=== PATIENT | female | born 1955 | race African-American/Black ===

== ENCOUNTER 2018-05-09 01:49 | Inpatient (IN) | payer MEDICARE, OTHER ==
[~2018-05-09] VITALS: Ht 167.6 cm; Wt 75.7 kg
[~2018-05-09 01:49] MED LIST: ESCI10TA54 PO; LOSA25TA12 PO
[2018-05-09] MEDS ORDERED: ALBUTEROL (0.083%) 2.5MG/3ML NEB HHN STA (02:04)
[2018-05-09] MEDS ORDERED: METHYLPREDNISOLONE SOD SUCC 125 MG/2 ML VIAL IV STA (02:04)
[2018-05-09] MEDS ORDERED: IPRATROPIUM BROMIDE (0.02%) 0.5MG/2.5ML NEB HHN STA (02:04)
[2018-05-09] MEDS ORDERED: ASPIRIN 81MG TABLET PO ONE (02:15)
[2018-05-09 03:10] LABS: BASOPHILS % 0.6 % (0.0-2.0); EOSINOPHILS % 0.9 % (0.0-5.0); HEMATOCRIT. 38.7 % (36.0-48.0); LYMPHOCYTES % 29.7 % (20.0-50.0); MEAN CORPUSCULAR HEMOGLOBIN 27.1 pg (28.0-32.0); MEAN CORPUSCULAR VOLUME 87.4 fL (81.0-99.0); MONOCYTES % 7.8 % (2.0-8.0); PLATELET 261 x1000/uL (130-400); RED BLOOD CELL COUNT 4.43 mill/uL (4.2-5.4); RED CELL DISTRIBUTION WIDTH 17.3 % (11.6-14.6)
[2018-05-09 03:17] LABS: CHLORIDE 103 mEq/L (98-107)
[2018-05-09 03:21] LABS: PARTIAL THROMBOPLASTIN TIME 25.2 sec (23.4-31.0)
[2018-05-09] MEDS ORDERED: SODIUM CHLORIDE 0.9% 1000ML BAG (SEPSIS BOLUS) IV ONE (04:00)
[2018-05-09] MEDS ORDERED: POTASSIUM CHLORIDE 20MEQ TABLET SR PO ONE (04:00)
[2018-05-09] MEDS ORDERED: LEVOFLOXACIN 750MG PREMIX 150 ML IV ONE (04:00)
[2018-05-09] MEDS ORDERED: MEDICATION NOT ON FORMULARY EA (Losartan Potassium 25 MG) PO SCH (11:45)
[2018-05-09 11:50] VITALS: BP 134/67
[2018-05-09 12:01] LABS: BG BASE EXCESS -5.4 mmol/L (-2.0-2.0); BG CARBOXYHEMOGLOBIN 1.5 % (0.5-1.5); BG DEOXYHEMOGLOBIN 7.9 % (0.0-5.0); BG HCO3 ACT 20.7 mmol/L (22.0-26.0); BG METHEMOGLOBIN 0.3 % (0.0-1.5); BG OXYHEMOGLOBIN 90.3 % (94.0-97.0); BG PCO2 42.4 mmHg (35.0-45.0); BG PH 7.306 (7.350-7.450); BG PO2 64.3 mmHg (75.0-100.0); BG SAMPLE SITE RIGHT RADIAL; BG TOTAL HEMOGLOBIN 11.9 g/dL (12.0-18.0); BG VENT MODE ROOM AIR
[2018-05-09 12:54] VITALS: BP 134/67
[2018-05-09] MEDS: MULTIVITAMINS,THER W-MINERALS TABLET PO SCH (13:26)
[2018-05-09] MEDS: ENOXAPARIN 40MG/0.4ML SYR SUBCUT SCH (13:26)
[2018-05-09] MEDS: FOLIC ACID 1MG TABLET PO SCH (13:26)
[2018-05-09] MEDS: METHYLPREDNISOLONE SOD SUCC 40 MG/ML VIAL IV SCH ×2 (13:27→21:38)
[2018-05-09] MEDS: THIAMINE HCL 100MG TABLET PO SCH (13:27)
[2018-05-09] MEDS: LOSARTAN POTASSIUM 25 MG TABLET PO SCH (13:27)
[2018-05-09] MEDS: NICOTINE 21MG PATCH TD SCH (13:27)
[2018-05-09 13:42] LABS: HEMATOCRIT 36.3 % (36.0-48.0); HEMOGLOBIN 11.6 g/dL (12.0-16.0); MEAN CORPUSCULAR HEMOGLOBIN 27.6 pg (28.0-32.0); PLATELET 277 x1000/uL (130-400); RED BLOOD CELL COUNT 4.22 mill/uL (4.2-5.4); RED CELL DISTRIBUTION WIDTH 17.4 % (11.6-14.6)
[2018-05-09 13:56] LABS: CHLORIDE 108 mEq/L (98-107)
[2018-05-09 14:04] LABS: LDL CHOLESTEROL 110 mg/dL (5-100)
[2018-05-09 14:05] LABS: HDL CHOLESTEROL 59 mg/dL (40-59)
[2018-05-09] MEDS ORDERED: INFLUENZA VIRUS VACCINE(AFLURIA) 0.5ML SYR IM ONE (16:00)
[2018-05-09] MEDS ORDERED: PNEUMOCOCCAL 23-VAL P-SAC VAC 0.5 ML IM ONE (16:00)
[2018-05-09 16:36] VITALS: BP 162/83
[2018-05-09] MEDS ORDERED: LACTULOSE 20G/30ML UDC PO NR (17:45)
[2018-05-09] MEDS ORDERED: BISACODYL 10MG SUPP PR NR (18:00)
[2018-05-09] MEDS: MONTELUKAST SODIUM 10MG TABLET PO SCH (19:20)
[2018-05-09 20:00] VITALS: BP 150/62
[2018-05-09] MEDS: IPRATROPIUM/ALBUTEROL 0.5-3(2.5)MG/3ML NEB HHN SCH (20:40)
[2018-05-09] MEDS ORDERED: FAMOTIDINE 20MG/2ML VIAL IV SCH (21:00)
[2018-05-10] VITALS: BP 140/79
[2018-05-10] MEDS ORDERED: DIPHENHYDRAMINE 50MG CAPSULE PO PRN (00:15)
[2018-05-10] MEDS: FAMOTIDINE 20MG/2ML VIAL IV SCH ×2 (00:17→09:39)
[2018-05-10] MEDS: IPRATROPIUM/ALBUTEROL 0.5-3(2.5)MG/3ML NEB HHN SCH ×5 (00:36→16:35)
[2018-05-10 04:00] VITALS: BP 136/78
[2018-05-10] MEDS: METHYLPREDNISOLONE SOD SUCC 40 MG/ML VIAL IV SCH ×2 (04:54→12:55)
[2018-05-10] MEDS ORDERED: LEVOFLOXACIN 500MG PREMIX 100 ML IV SCH (05:00)
[2018-05-10 07:37] LABS: HEMATOCRIT 34.7 % (36.0-48.0); HEMOGLOBIN 10.9 g/dL (12.0-16.0); MEAN CORPUSCULAR HEMOGLOBIN 26.8 pg (28.0-32.0); MEAN CORPUSCULAR VOLUME 85.3 fL (81.0-99.0); PLATELET 221 x1000/uL (130-400); RED BLOOD CELL COUNT 4.07 mill/uL (4.2-5.4); RED CELL DISTRIBUTION WIDTH 17.1 % (11.6-14.6)
[2018-05-10 08:00] VITALS: BP 135/77
[2018-05-10] MEDS ORDERED: CITALOPRAM HYDROBROMIDE 20MG TABLET PO SCH (09:00)
[2018-05-10] MEDS ORDERED: LORATADINE 10MG TABLET PO SCH (09:00)
[2018-05-10] MEDS ORDERED: MEDICATION NOT ON FORMULARY EA (Escitalopram Oxalate 10 MG) PO SCH (09:00)
[2018-05-10] MEDS: MULTIVITAMINS,THER W-MINERALS TABLET PO SCH (09:39)
[2018-05-10] MEDS: ENOXAPARIN 40MG/0.4ML SYR SUBCUT SCH (09:39)
[2018-05-10] MEDS: THIAMINE HCL 100MG TABLET PO SCH (09:39)
[2018-05-10] MEDS: FOLIC ACID 1MG TABLET PO SCH (09:40)
[2018-05-10] MEDS: LOSARTAN POTASSIUM 25 MG TABLET PO SCH (09:40)
[2018-05-10] MEDS: NICOTINE 21MG PATCH TD SCH (09:40)
[2018-05-10] MEDS ORDERED: IOHEXOL-350 100 ML BOTTLE ONE (09:55)
[2018-05-10 10:49] LABS: CHLORIDE 110 mEq/L (98-107)
[2018-05-10 11:14] LABS: CLARITY URINE CLEAR (CLEAR); COLOR URINE YELLOW (YELLOW); KETONES URINE NEGATIVE (NEGATIVE); LEUKOCYTE ESTERASE URINE NEGATIVE (NEGATIVE); NITRITE URINE NEGATIVE (NEGATIVE); OCCULT BLOOD URINE NEGATIVE (NEGATIVE); PROTEIN URINE NEGATIVE (NEGATIVE); SPECIFIC GRAVITY URINE 1.022 (1.005-1.030); UROBILINOGEN URINE 0.2 E.U./dL (0.2-1.0)
[2018-05-10 11:44] LABS: *AMPHETAMINES SCREEN URINE NEGATIVE (NEGATIVE)
[2018-05-10 11:45] LABS: *BARBITURATES SCREEN URINE NEGATIVE (NEGATIVE); *BENZODIAZEPINES SCREEN URINE NEGATIVE (NEGATIVE); *COCAINE SCREEN URINE PRESUMTIVE POSITIVE (NEGATIVE); METHADONE URINE SCREEN NEGATIVE (NEGATIVE)
[2018-05-10 11:46] LABS: CANNABINOID URINE SCREEN NEGATIVE (NEGATIVE); OPIATES URINE SCREEN PRESUMTIVE POSITIVE (NEGATIVE); PHENCYCLIDINE URINE SCREEN NEGATIVE (NEGATIVE)
[2018-05-10 12:00] VITALS: BP 168/78
[2018-05-10] MEDS ORDERED: CLONIDINE 0.1MG TABLET PO NR (15:37)
[2018-05-10 16:00] VITALS: BP 159/85
[2018-05-10] MEDS: MONTELUKAST SODIUM 10MG TABLET PO SCH (16:20)
[2018-05-10 16:46] VITALS: BP 159/85
== END 2018-05-10 18:30 | disposition home or self-care (01) | DRG 871 ==
LOC: ER 01:49 → 7WST 04:06 → ENRESERV 06:50
PROVIDERS: ADMIT Internal Medicine; ATTEND Internal Medicine
PROC: 02HV33Z Insertion of Infusion Device into Superior Vena Cava, Percutaneous Approach (ICD-10-PCS; principal; 2018-05-10)
PROC: B5181ZA Fluoroscopy of Superior Vena Cava using Low Osmolar Contrast, Guidance (ICD-10-PCS; 2018-05-10)
PROC: B548ZZA Ultrasonography of Superior Vena Cava, Guidance (ICD-10-PCS; 2018-05-10)
DX: A41.9 Sepsis, unspecified organism (principal); J18.9 Pneumonia, unspecified organism; R65.21 Severe sepsis with septic shock; J44.0 Chronic obstructive pulmonary disease with (acute) lower respiratory infection; E87.2 Acidosis; N39.0 Urinary tract infection, site not specified; J44.1 Chronic obstructive pulmonary disease with (acute) exacerbation; F10.20 Alcohol dependence, uncomplicated; T38.0X5A Adverse effect of glucocorticoids and synthetic analogues, initial encounter; F17.210 Nicotine dependence, cigarettes, uncomplicated; R73.9 Hyperglycemia, unspecified; F32.9 Major depressive disorder, single episode, unspecified; I10 Essential (primary) hypertension; R09.02 Hypoxemia; Z79.899 Other long term (current) drug therapy; Y92.89 Other specified places as the place of occurrence of the external cause
CPT/HCPCS: 36415; 36569; 36600; 71045; 71275; 74018; 76937; 77001; 80048; 80061; 80305; 82140; 82375; 82805; 83036; 83605; 83880; 84443; 84484; 85027; 85379; 90686; 90732; 93005; 93970; 94640; 96365; 96366; 96375; 99291; C1725; J1650; J1956; J2920; J2930; J3490; J7030; J7050; J7611; J7620; Q0163; Q9967

== ENCOUNTER 2018-06-13 18:46 | Inpatient (IN) | payer MEDICARE, OTHER ==
[~2018-06-13] VITALS: Ht 167.6 cm; Wt 69.4 kg
[2018-06-13] MEDS ORDERED: DILTIAZEM HCL 5MG/ML 5ML VIAL IV ONE ×2 (19:30→20:30)
[2018-06-13] MEDS ORDERED: NITROGLYCERIN 0.4MG TABLET SL SL PRN (19:30)
[2018-06-13] MEDS ORDERED: ASPIRIN 81MG TABLET PO ONE (19:30)
[2018-06-13] MEDS ORDERED: ENOXAPARIN 100MG/ML SYR SUBCUT ONE ×2 (19:30→20:30)
[2018-06-13 20:22] LABS: BASOPHILS % 0.3 % (0.0-2.0); EOSINOPHILS % 0.1 % (0.0-5.0); HEMATOCRIT. 43.3 % (36.0-48.0); HEMOGLOBIN. 13.9 g/dL (12.0-16.0); MEAN CORPUSCULAR HEMOGLOBIN 27.9 pg (28.0-32.0); MEAN CORPUSCULAR VOLUME 86.9 fL (81.0-99.0); MEAN PLATELET VOLUME 8.6 fl (7.4-10.4); MONOCYTES % 3.8 % (2.0-8.0); NEUTROPHILS % 85.8 % (40.0-76.0); PLATELET 301 x1000/uL (130-400); RED BLOOD CELL COUNT 4.99 mill/uL (4.2-5.4); RED CELL DISTRIBUTION WIDTH 17.8 % (11.6-14.6)
[2018-06-13 20:25] LABS: CHLORIDE 108 mEq/L (98-107)
[2018-06-13] MEDS ORDERED: DILTIAZEM HCL 125 MG in DEXT 5% WATER 100 ML IV ONE ×2 (20:30→20:45)
[2018-06-13] MEDS ORDERED: DILTIAZEM HCL 120MG CAPSULE CD 24HR PO ONE (20:30)
[2018-06-13] MEDS ORDERED: DILTIAZEM HCL 60MG TABLET PO ONE (20:45)
[2018-06-13] MEDS ORDERED: SODIUM CHLORIDE 0.9% 1,000 ML IV ONE (21:00)
[2018-06-13] MEDS ORDERED: CALCIUM GLUCONATE 100MG/ML 10ML VIAL IV ONE (21:00)
[2018-06-13] MEDS ORDERED: SODIUM CHLORIDE 0.45% 1,000 ML IV SCH (22:43)
[2018-06-13] MEDS ORDERED: ACETAMINOPHEN 325MG TABLET PO PRN (22:45)
[2018-06-13] MEDS ORDERED: MAGNESIUM/ALUMINUM HYDROXIDE/SIMETHICONE 30ML UDC PO PRN (22:45)
[2018-06-13] MEDS ORDERED: IPRATROPIUM/ALBUTEROL 0.5-3(2.5)MG/3ML NEB INH PRN (22:45)
[2018-06-13] MEDS ORDERED: ONDANSETRON HCL 4MG/2ML INJ IV PRN (22:45)
[2018-06-13 23:13] LABS: PHOSPHORUS 3.1 mg/dL (2.5-4.9)
[2018-06-13] MEDS ORDERED: DIGOXIN 500MCG/2ML AMP IV SCH (23:53)
[2018-06-14] MEDS ORDERED: DIGOXIN 500MCG/2ML AMP IV SCH (02:00)
[2018-06-14] MEDS ORDERED: DIGOXIN 500MCG/2ML AMP IV NR ×2 (06:01→06:27)
[2018-06-14] MEDS ORDERED: METOPROLOL TARTRATE 50MG TABLET PO NR (06:01)
[2018-06-14 06:15] LABS: BASOPHILS % 0.6 % (0.0-2.0); EOSINOPHILS % 0.1 % (0.0-5.0); HEMATOCRIT. 41.3 % (36.0-48.0); HEMOGLOBIN. 13.2 g/dL (12.0-16.0); LYMPHOCYTES % 15.2 % (20.0-50.0); MEAN CORPUSCULAR HEMOGLOBIN 28.1 pg (28.0-32.0); MEAN CORPUSCULAR VOLUME 87.8 fL (81.0-99.0); MEAN PLATELET VOLUME 8.8 fl (7.4-10.4); MONOCYTES % 8.5 % (2.0-8.0); NEUTROPHILS % 75.6 % (40.0-76.0); PLATELET 255 x1000/uL (130-400); RED CELL DISTRIBUTION WIDTH 17.5 % (11.6-14.6)
[2018-06-14 06:22] LABS: CHLORIDE 111 mEq/L (98-107)
[2018-06-14 06:30] LABS: LDL CHOLESTEROL 119 mg/dL (5-100)
[2018-06-14 06:32] LABS: HDL CHOLESTEROL 71 mg/dL (40-59); T4 FREE 0.79 ng/dL (0.76-1.46)
[2018-06-14] MEDS ORDERED: ENOXAPARIN 40MG/0.4ML SYR SUBCUT SCH (09:00)
[2018-06-14] MEDS ORDERED: DEXTROSE 50% WATER 50ML SYRINGE IV PRN (11:30)
[2018-06-14] MEDS ORDERED: LEVOFLOXACIN 500MG PREMIX 100 ML IV SCH (11:30)
[2018-06-14] MEDS ORDERED: HYDROCODONE/ACETAMINOPHEN 5/325MG TABLET PO PRN (11:30)
[2018-06-14] MEDS ORDERED: DOCUSATE SODIUM 100MG CAPSULE PO PRN (11:30)
[2018-06-14] MEDS ORDERED: LIDOCAINE HCL 1% 20ML VIAL (Pyxis) INJ ONE (11:59)
[2018-06-14] MEDS ORDERED: IPRATROPIUM/ALBUTEROL 0.5-3(2.5)MG/3ML NEB HHN SCH (12:00)
[2018-06-14] MEDS: ASPIRIN 81MG EC TABLET PO SCH (12:06)
[2018-06-14 12:25] LABS: BG BASE EXCESS -5.1 mmol/L (-2.0-2.0); BG CARBOXYHEMOGLOBIN 1.1 % (0.5-1.5); BG DEOXYHEMOGLOBIN 6.5 % (0.0-5.0); BG FRACTION INSPIRED OXYGEN 21; BG HCO3 ACT 18.9 mmol/L (22.0-26.0); BG METHEMOGLOBIN 0.3 % (0.0-1.5); BG OXYGEN SATURATION 93.4 % (92.0-98.5); BG OXYHEMOGLOBIN 92.1 % (94.0-97.0); BG PCO2 32.4 mmHg (35.0-45.0); BG PH 7.384 (7.350-7.450); BG PO2 69.3 mmHg (75.0-100.0); BG SAMPLE SITE LEFT BRACHIAL; BG TOTAL HEMOGLOBIN 13.7 g/dL (12.0-18.0); BG VENT MODE ROOM AIR
[2018-06-14] MEDS ORDERED: AMIODARONE HCL 900 MG in DEXT 5% WATER 482 ML IV PRN ×2 (12:30→12:45)
[2018-06-14] MEDS ORDERED: AMIODARONE HCL 150 MG in DEXT 5% WATER 100 ML IV NR ×2 (12:39→12:45)
[2018-06-14] MEDS: BLOOD SUGAR DIAGNOSTIC STRIP TEST SCH (13:00)
[2018-06-14] MEDS: INSULIN LISPRO 100 UNITS/ML SUBCUT SCH (13:20)
[2018-06-14] MEDS ORDERED: DILTIAZEM HCL 125 MG in DEXT 5% WATER 100 ML IV SCH (14:00)
[2018-06-14] MEDS: DILTIAZEM HCL 125 MG in DEXT 5% WATER 100 ML IV SCH (14:29)
[2018-06-14 16:06] LABS: D-DIMER < 0.19 mg/L FEU (<0.50); INR 1.2; PROTHROMBIN TIME 11.6 sec (9.1-11.1)
[2018-06-14] MEDS: PANTOPRAZOLE 40MG DR TABLET PO SCH ×2 (18:50→21:00)
[2018-06-14] MEDS ORDERED: METOPROLOL TARTRATE 50MG TABLET PO SCH (21:00)
[2018-06-15] VITALS (41 sets, daily range): BP systolic 76–158; BP diastolic 19–95
[2018-06-15] MEDS ORDERED: LEVOFLOXACIN 500MG PREMIX 100 ML IV SCH (03:00)
[2018-06-15] MEDS: ENOXAPARIN 80MG/0.8ML SYR SUBCUT SCH ×2 (03:47→16:37)
[2018-06-15] MEDS: ATORVASTATIN CALCIUM 10MG TABLET PO SCH ×2 (03:47→20:37)
[2018-06-15 05:17] LABS: HEMATOCRIT 40.2 % (36.0-48.0); HEMOGLOBIN 12.7 g/dL (12.0-16.0); MEAN CORPUSCULAR HEMOGLOBIN 27.8 pg (28.0-32.0); MEAN CORPUSCULAR VOLUME 88.2 fL (81.0-99.0); PLATELET 239 x1000/uL (130-400); RED BLOOD CELL COUNT 4.56 mill/uL (4.2-5.4); RED CELL DISTRIBUTION WIDTH 17.5 % (11.6-14.6)
[2018-06-15 05:22] LABS: CHLORIDE 113 mEq/L (98-107)
[2018-06-15] MEDS: THIAMINE HCL 100MG TABLET PO SCH (05:47)
[2018-06-15] MEDS ORDERED: NICOTINE 14MG PATCH TD SCH (09:00)
[2018-06-15] MEDS ORDERED: DIGOXIN 500MCG/2ML AMP IV NR (10:30)
[2018-06-15] MEDS ORDERED: MAGNESIUM 1 G PREMIX 100 ML IV NR (10:30)
[2018-06-15] MEDS: PANTOPRAZOLE 40MG DR TABLET PO SCH ×2 (11:13→20:37)
[2018-06-15] MEDS: POTASSIUM CHLORIDE 20MEQ TABLET SR PO SCH (11:14)
[2018-06-15] MEDS: FUROSEMIDE 40MG/4ML VIAL IVP SCH (11:14)
[2018-06-15] MEDS: ASPIRIN 81MG EC TABLET PO SCH (11:14)
[2018-06-15] MEDS: INSULIN LISPRO 100 UNITS/ML SUBCUT SCH ×3 (12:00→20:37)
[2018-06-15] MEDS: BLOOD SUGAR DIAGNOSTIC STRIP TEST SCH ×3 (12:00→20:37)
[2018-06-15 13:13] LABS: CLARITY URINE CLEAR (CLEAR); COLOR URINE YELLOW (YELLOW); KETONES URINE NEGATIVE (NEGATIVE); LEUKOCYTE ESTERASE URINE NEGATIVE (NEGATIVE); NITRITE URINE NEGATIVE (NEGATIVE); OCCULT BLOOD URINE NEGATIVE (NEGATIVE); PROTEIN URINE NEGATIVE (NEGATIVE); SPECIFIC GRAVITY URINE 1.009 (1.005-1.030); UROBILINOGEN URINE 0.2 E.U./dL (0.2-1.0)
[2018-06-15 13:37] LABS: *AMPHETAMINES SCREEN URINE NEGATIVE (NEGATIVE); *BENZODIAZEPINES SCREEN URINE NEGATIVE (NEGATIVE); *COCAINE SCREEN URINE PRESUMTIVE POSITIVE (NEGATIVE)
[2018-06-15 13:38] LABS: CANNABINOID URINE SCREEN NEGATIVE (NEGATIVE); METHADONE URINE SCREEN NEGATIVE (NEGATIVE); OPIATES URINE SCREEN NEGATIVE (NEGATIVE); PHENCYCLIDINE URINE SCREEN NEGATIVE (NEGATIVE)
[2018-06-15 13:40] LABS: *BARBITURATES SCREEN URINE NEGATIVE (NEGATIVE)
[2018-06-15] MEDS: DILTIAZEM HCL 125 MG in DEXT 5% WATER 100 ML IV SCH (13:45)
[2018-06-15] MEDS: METHYLPREDNISOLONE SOD SUCC 40 MG/ML VIAL IV SCH ×2 (14:00→21:24)
[2018-06-15] MEDS ORDERED: DIPHENHYDRAMINE 25MG CAPSULE PO NR (16:30)
[2018-06-15] MEDS: NICOTINE 21MG PATCH TD SCH (20:37)
[2018-06-15] MEDS: IPRATROPIUM/ALBUTEROL 0.5-3(2.5)MG/3ML NEB HHN SCH (20:46)
[2018-06-15] MEDS: ALPRAZOLAM 0.25 MG TABLET PO PRN (22:53)
[2018-06-16] VITALS (43 sets, daily range): BP systolic 109–156; BP diastolic 59–106
[2018-06-16] MEDS: IPRATROPIUM/ALBUTEROL 0.5-3(2.5)MG/3ML NEB HHN SCH ×6 (01:08→20:33)
[2018-06-16] MEDS: LEVOFLOXACIN 250MG PREMIX 50 ML IV SCH (02:02)
[2018-06-16] MEDS: ENOXAPARIN 80MG/0.8ML SYR SUBCUT SCH (02:02)
[2018-06-16] MEDS ORDERED: LEVOFLOXACIN 250MG PREMIX 50 ML IV SCH (03:00)
[2018-06-16 05:33] LABS: MEAN CORPUSCULAR HEMOGLOBIN 27.9 pg (28.0-32.0); MEAN CORPUSCULAR VOLUME 87.8 fL (81.0-99.0); MEAN PLATELET VOLUME 9.5 fl (7.4-10.4); PLATELET 225 x1000/uL (130-400); RED BLOOD CELL COUNT 4.67 mill/uL (4.2-5.4); RED CELL DISTRIBUTION WIDTH 17.2 % (11.6-14.6)
[2018-06-16 05:38] LABS: CHLORIDE 111 mEq/L (98-107)
[2018-06-16] MEDS: METHYLPREDNISOLONE SOD SUCC 40 MG/ML VIAL IV SCH ×2 (06:03→13:04)
[2018-06-16] MEDS: PANTOPRAZOLE 40MG DR TABLET PO SCH ×2 (06:03→20:34)
[2018-06-16] MEDS: INSULIN LISPRO 100 UNITS/ML SUBCUT SCH ×4 (06:04→20:39)
[2018-06-16] MEDS: BLOOD SUGAR DIAGNOSTIC STRIP TEST SCH ×4 (06:04→20:34)
[2018-06-16] MEDS: DIPHENHYDRAMINE 50MG/ML VIAL IV PRN ×2 (08:33→16:25)
[2018-06-16] MEDS: THIAMINE HCL 100MG TABLET PO SCH (08:33)
[2018-06-16] MEDS: POTASSIUM CHLORIDE 20MEQ TABLET SR PO SCH (08:33)
[2018-06-16] MEDS: ASPIRIN 81MG EC TABLET PO SCH (08:33)
[2018-06-16] MEDS: ALPRAZOLAM 0.25 MG TABLET PO PRN (08:33)
[2018-06-16] MEDS: FUROSEMIDE 40MG/4ML VIAL IVP SCH (08:33)
[2018-06-16] MEDS: NICOTINE 21MG PATCH TD SCH (08:34)
[2018-06-16 08:46] LABS: PLATELET ESTIMATE NORMAL
[2018-06-16] MEDS: LOSARTAN POTASSIUM 25 MG TABLET PO SCH (12:05)
[2018-06-16 15:37] LABS: BG BASE EXCESS -2.7 mmol/L (-2.0-2.0); BG CARBOXYHEMOGLOBIN 0.6 % (0.5-1.5); BG FRACTION INSPIRED OXYGEN 21; BG HCO3 ACT 20.4 mmol/L (22.0-26.0); BG METHEMOGLOBIN 0.3 % (0.0-1.5); BG OXYGEN SATURATION 93.9 % (92.0-98.5); BG OXYHEMOGLOBIN 93.1 % (94.0-97.0); BG PCO2 30.7 mmHg (35.0-45.0); BG PH 7.441 (7.350-7.450); BG PO2 70.5 mmHg (75.0-100.0); BG SAMPLE SITE RIGHT RADIAL; BG VENT MODE ROOM AIR
[2018-06-16] MEDS ORDERED: ALPRAZOLAM 0.25 MG TABLET PO PRN (16:00)
[2018-06-16] MEDS ORDERED: LORAZEPAM 1MG TABLET PO PRN (17:15)
[2018-06-16] MEDS: DILTIAZEM HCL 60MG TABLET PO SCH (20:33)
[2018-06-16] MEDS: ATORVASTATIN CALCIUM 10MG TABLET PO SCH (20:33)
[2018-06-16] MEDS: AMLODIPINE 5MG TABLET PO SCH (20:34)
[2018-06-17] VITALS: BP 122/68
[2018-06-17] MEDS: IPRATROPIUM/ALBUTEROL 0.5-3(2.5)MG/3ML NEB HHN SCH ×5 (00:44→15:30)
[2018-06-17] MEDS ORDERED: METHYLPREDNISOLONE SOD SUCC 40 MG/ML VIAL IV SCH (03:00)
[2018-06-17] MEDS: LEVOFLOXACIN 250MG PREMIX 50 ML IV SCH (03:49)
[2018-06-17 04:00] VITALS: BP 116/62
[2018-06-17] MEDS: BLOOD SUGAR DIAGNOSTIC STRIP TEST SCH ×2 (06:36→11:45)
[2018-06-17] MEDS: PANTOPRAZOLE 40MG DR TABLET PO SCH (06:37)
[2018-06-17] MEDS: INSULIN LISPRO 100 UNITS/ML SUBCUT SCH ×2 (06:40→12:15)
[2018-06-17 08:14] VITALS: BP 120/77
[2018-06-17] MEDS: DILTIAZEM HCL 60MG TABLET PO SCH (08:15)
[2018-06-17] MEDS: LOSARTAN POTASSIUM 25 MG TABLET PO SCH (08:15)
[2018-06-17] MEDS: NICOTINE 21MG PATCH TD SCH (08:15)
[2018-06-17] MEDS: ASPIRIN 81MG EC TABLET PO SCH (08:15)
[2018-06-17] MEDS: POTASSIUM CHLORIDE 20MEQ TABLET SR PO SCH (08:15)
[2018-06-17] MEDS: THIAMINE HCL 100MG TABLET PO SCH (08:15)
[2018-06-17] MEDS: AMLODIPINE 5MG TABLET PO SCH (08:15)
[2018-06-17 12:00] VITALS: BP 112/55
[2018-06-17 14:32] VITALS: BP 112/55
[2018-06-17 15:27] LABS: HEMATOCRIT. 36.9 % (36.0-48.0); HEMOGLOBIN. 11.5 g/dL (12.0-16.0); MEAN CORPUSCULAR HEMOGLOBIN 27.8 pg (28.0-32.0); MEAN CORPUSCULAR VOLUME 88.9 fL (81.0-99.0); MEAN PLATELET VOLUME 9.4 fl (7.4-10.4); PLATELET 198 x1000/uL (130-400); RED BLOOD CELL COUNT 4.15 mill/uL (4.2-5.4); RED CELL DISTRIBUTION WIDTH 17.5 % (11.6-14.6)
[2018-06-17 15:48] LABS: PLATELET ESTIMATE NORMAL
== END 2018-06-17 16:11 | disposition home or self-care (01) | DRG 291 ==
LOC: ER 18:46 → MICUSO 21:13 → EDBEDREQSVC 21:16 → EDBEDREQ 21:16 → EDBEDREQTM 21:16 → EDBEDREQSVC 23:20 → EDBEDREQTM 23:20 → ENRESERV 06-15 08:49 → 5WST 06-16 21:41
PROVIDERS: ADMIT Internal Medicine; ATTEND Internal Medicine
PROC: 02HV33Z Insertion of Infusion Device into Superior Vena Cava, Percutaneous Approach (ICD-10-PCS; principal; 2018-06-14)
PROC: B548ZZA Ultrasonography of Superior Vena Cava, Guidance (ICD-10-PCS; 2018-06-14)
DX: I11.0 Hypertensive heart disease with heart failure (principal); J18.9 Pneumonia, unspecified organism; J44.1 Chronic obstructive pulmonary disease with (acute) exacerbation; D68.59 Other primary thrombophilia; J44.0 Chronic obstructive pulmonary disease with (acute) lower respiratory infection; I48.1 Persistent atrial fibrillation; I48.0 Paroxysmal atrial fibrillation; I50.33 Acute on chronic diastolic (congestive) heart failure; F17.210 Nicotine dependence, cigarettes, uncomplicated; I48.2 Chronic atrial fibrillation; E11.65 Type 2 diabetes mellitus with hyperglycemia; F14.90 Cocaine use, unspecified, uncomplicated; R94.4 Abnormal results of kidney function studies; F32.9 Major depressive disorder, single episode, unspecified; E78.5 Hyperlipidemia, unspecified; F41.9 Anxiety disorder, unspecified; F10.10 Alcohol abuse, uncomplicated; R00.1 Bradycardia, unspecified; T46.1X5A Adverse effect of calcium-channel blockers, initial encounter; Y92.238 Other place in hospital as the place of occurrence of the external cause; Z91.19 Patient's noncompliance with other medical treatment and regimen; Z79.899 Other long term (current) drug therapy; Z79.82 Long term (current) use of aspirin; Z71.51 Drug abuse counseling and surveillance of drug abuser; Z71.6 Tobacco abuse counseling; Z71.41 Alcohol abuse counseling and surveillance of alcoholic
CPT/HCPCS: 36415; 36569; 36600; 71045; 74018; 76937; 80048; 80061; 80305; 82375; 82805; 82962; 83036; 83605; 83735; 83880; 84100; 84439; 84443; 84484; 85027; 85379; 87804; 93005; 93306; 93970; 94640; 96361; 96365; 96375; 97116; 97162; 99284; 99291; A6261; C1725; J0282; J0610; J1160; J1200; J1650; J1815; J1940; J1956; J2920; J3475; J3490; J7030; J7050; J7060; J7620; Q0163

== ENCOUNTER 2018-10-17 15:55 | Inpatient (IN) | payer MEDICARE, OTHER ==
[~2018-10-17] VITALS: Ht 152.4 cm; Wt 73.7 kg
[~2018-10-17 15:55] MED LIST changes: -LOSA25TA12 PO; +LOSA25TA26 PO
[2018-10-17] MEDS ORDERED: METHYLPREDNISOLONE SOD SUCC 125 MG/2 ML VIAL IV STA (16:33)
[2018-10-17] MEDS ORDERED: IPRATROPIUM/ALBUTEROL 0.5-3(2.5)MG/3ML NEB HHN ONE (16:45)
[2018-10-17] MEDS ORDERED: DILTIAZEM HCL 30MG TABLET PO ONE (16:45)
[2018-10-17] MEDS ORDERED: MAGNESIUM 2 G PREMIX 50 ML IV ONE (16:45)
[2018-10-17 16:54] LABS: BG BASE EXCESS -2.4 mmol/L (-2.0-2.0); BG CARBOXYHEMOGLOBIN 1.1 % (0.5-1.5); BG DEOXYHEMOGLOBIN 6.3 % (0.0-5.0); BG FRACTION INSPIRED OXYGEN 21; BG METHEMOGLOBIN 0.3 % (0.0-1.5); BG OXYGEN SATURATION 93.6 % (92.0-98.5); BG OXYHEMOGLOBIN 92.3 % (94.0-97.0); BG PCO2 31.7 mmHg (35.0-45.0); BG PH 7.439 (7.350-7.450); BG PO2 70.2 mmHg (75.0-100.0); BG SAMPLE SITE RIGHT BRACHIAL; BG TOTAL HEMOGLOBIN 11.8 g/dL (12.0-18.0); BG VENT MODE ROOM AIR
[2018-10-17 17:09] LABS: BASOPHILS % 1.1 % (0.0-2.0); EOSINOPHILS % 0.4 % (0.0-5.0); HEMATOCRIT. 36.6 % (36.0-48.0); HEMOGLOBIN. 11.3 g/dL (12.0-16.0); LYMPHOCYTES % 17.3 % (20.0-50.0); MEAN CORPUSCULAR VOLUME 74.4 fL (81.0-99.0); MEAN PLATELET VOLUME 8.4 fl (7.4-10.4); MONOCYTES % 7.5 % (2.0-8.0); NEUTROPHILS % 73.7 % (40.0-76.0); PLATELET 373 x1000/uL (130-400); RED BLOOD CELL COUNT 4.92 mill/uL (4.2-5.4); RED CELL DISTRIBUTION WIDTH 21.4 % (11.6-14.6)
[2018-10-17 17:14] LABS: CHLORIDE 107 mEq/L (98-107)
[2018-10-17 17:17] LABS: INR 1.5; PARTIAL THROMBOPLASTIN TIME 62.2 sec (23.4-31.0); PROTHROMBIN TIME 14.9 sec (9.6-11.0)
[2018-10-17 17:18] LABS: ETHANOL BLOOD < 10 mg/dL
[2018-10-17] MEDS ORDERED: SODIUM CHLORIDE 0.9% 1,000 ML IV NR (18:10)
[2018-10-17] MEDS ORDERED: PIPERACILLIN/TAZ 3.375G PREMIX 50 ML IV ONE (18:15)
[2018-10-17] MEDS ORDERED: DILTIAZEM HCL 5MG/ML 5ML VIAL IV ONE (18:15)
[2018-10-17 23:00] VITALS: BP 128/79
[2018-10-17] MEDS ORDERED: ACETAMINOPHEN 325MG TABLET PO PRN (23:45)
[2018-10-17] MEDS ORDERED: ENOXAPARIN 40MG/0.4ML SYR SUBCUT SCH (23:45)
[2018-10-17] MEDS ORDERED: CARVEDILOL 6.25 MG TABLET PO SCH (23:45)
[2018-10-18] VITALS (12 sets, daily range): BP systolic 113–168; BP diastolic 41–92
[2018-10-18] MEDS ORDERED: LEVOFLOXACIN 500MG TABLET PO SCH ×2
[2018-10-18] MEDS: CARVEDILOL 6.25 MG TABLET PO SCH ×3 (00:40→21:27)
[2018-10-18] MEDS ORDERED: PNEUMOCOCCAL 23-VAL P-SAC VAC 0.5 ML IM ONE (02:00)
[2018-10-18] MEDS ORDERED: BARIUM SULFATE 450ML ORAL SUSP PO SCH (03:00)
[2018-10-18] MEDS ORDERED: DIATR MEGLU/DIATRIZOATE SOLN 30ML PO SCH ×2 (03:00→07:43)
[2018-10-18] MEDS: MORPHINE SULFATE 2 MG/ML CPJ (NOT FOR IM USE) IV PRN ×2 (03:24→06:34)
[2018-10-18 05:58] LABS: HEMATOCRIT. 30.2 % (36.0-48.0); HEMOGLOBIN. 9.3 g/dL (12.0-16.0); MEAN CORPUSCULAR HEMOGLOBIN 22.9 pg (28.0-32.0); MEAN CORPUSCULAR VOLUME 74.1 fL (81.0-99.0); MEAN PLATELET VOLUME 8.9 fl (7.4-10.4); PLATELET 306 x1000/uL (130-400); RED BLOOD CELL COUNT 4.07 mill/uL (4.2-5.4); RED CELL DISTRIBUTION WIDTH 21.3 % (11.6-14.6)
[2018-10-18] MEDS: INSULIN LISPRO 100 UNITS/ML SUBCUT SCH ×5 (07:20→20:20)
[2018-10-18] MEDS ORDERED: DEXTROSE 50% WATER 50ML SYRINGE IV PRN (07:30)
[2018-10-18] MEDS: LOSARTAN POTASSIUM 50 MG TABLET PO SCH (08:16)
[2018-10-18] MEDS ORDERED: ENOXAPARIN 30MG/0.3ML SYR SUBCUT SCH (09:00)
[2018-10-18] MEDS: NICOTINE 21MG PATCH TD SCH (09:10)
[2018-10-18] MEDS: IPRATROPIUM/ALBUTEROL 0.5-3(2.5)MG/3ML NEB HHN SCH ×4 (09:24→21:07)
[2018-10-18 09:44] LABS: BG BASE EXCESS -3.7 mmol/L (-2.0-2.0); BG CARBOXYHEMOGLOBIN 0.9 % (0.5-1.5); BG DEOXYHEMOGLOBIN 8.9 % (0.0-5.0); BG FRACTION INSPIRED OXYGEN 21; BG HCO3 ACT 20.3 mmol/L (22.0-26.0); BG METHEMOGLOBIN 0.1 % (0.0-1.5); BG OXYHEMOGLOBIN 90.1 % (94.0-97.0); BG PCO2 32.8 mmHg (35.0-45.0); BG PH 7.409 (7.350-7.450); BG SAMPLE SITE LEFT BRACHIAL; BG TOTAL HEMOGLOBIN 9.7 g/dL (12.0-18.0); BG VENT MODE ROOM AIR
[2018-10-18] MEDS ORDERED: IOHEXOL-300 100 ML BOTTLE ONE (10:47)
[2018-10-18 12:22] LABS: PLATELET ESTIMATE NORMAL
[2018-10-18] MEDS: BLOOD SUGAR DIAGNOSTIC STRIP TEST SCH ×3 (12:40→20:19)
[2018-10-18] MEDS ORDERED: DOCUSATE SODIUM 100MG CAPSULE PO PRN (13:30)
[2018-10-18 14:31] LABS: CLARITY URINE CLEAR (CLEAR); COLOR URINE YELLOW (YELLOW); KETONES URINE NEGATIVE (NEGATIVE); LEUKOCYTE ESTERASE URINE NEGATIVE (NEGATIVE); NITRITE URINE NEGATIVE (NEGATIVE); OCCULT BLOOD URINE NEGATIVE (NEGATIVE); PH URINE 6.5 (4.5-8.0); PROTEIN URINE TRACE (NEGATIVE); SPECIFIC GRAVITY URINE 1.063 (1.005-1.030); UROBILINOGEN URINE 0.2 E.U./dL (0.2-1.0)
[2018-10-18] MEDS ORDERED: LEVOFLOXACIN 500MG PREMIX 100 ML IV NR (15:00)
[2018-10-18] MEDS: METHYLPREDNISOLONE SOD SUCC 40 MG/ML VIAL IV SCH ×2 (15:28→21:26)
[2018-10-18] MEDS: FAMOTIDINE 20MG/2ML VIAL IV SCH (15:54)
[2018-10-18] MEDS ORDERED: FAMOTIDINE 20MG/2ML VIAL IV SCH ×2 (16:00→21:00)
[2018-10-18] MEDS ORDERED: BISACODYL 10MG SUPP PR PRN (16:00)
[2018-10-18] MEDS ORDERED: MAGNESIUM/ALUMINUM HYDROXIDE/SIMETHICONE 30ML UDC PO PRN (16:00)
[2018-10-18] MEDS ORDERED: MAGNESIUM/ALUMINUM HYDROXIDE/SIMETHICONE 30ML UDC PO NR (16:00)
[2018-10-18] MEDS ORDERED: BISACODYL 10MG SUPP PR NR (16:00)
[2018-10-18] MEDS: APIXABAN 5 MG TABLET PO SCH (17:58)
[2018-10-18] MEDS ORDERED: LORAZEPAM 1MG TABLET PO NR (20:30)
[2018-10-18] MEDS ORDERED: LEVOFLOXACIN 250MG TABLET PO SCH (21:00)
[2018-10-18] MEDS: BUDESONIDE 0.5MG/2ML NEB HHN SCH (21:07)
[2018-10-18 22:49] LABS: CANNABINOID URINE SCREEN NEGATIVE (NEGATIVE); OPIATES URINE SCREEN PRESUMTIVE POSITIVE (NEGATIVE); PHENCYCLIDINE URINE SCREEN NEGATIVE (NEGATIVE)
[2018-10-18 22:50] LABS: *AMPHETAMINES SCREEN URINE NEGATIVE (NEGATIVE); *BARBITURATES SCREEN URINE NEGATIVE (NEGATIVE); *BENZODIAZEPINES SCREEN URINE NEGATIVE (NEGATIVE); *COCAINE SCREEN URINE NEGATIVE (NEGATIVE); METHADONE URINE SCREEN NEGATIVE (NEGATIVE)
[2018-10-19] VITALS (12 sets, daily range): BP systolic 120–169; BP diastolic 53–89
[2018-10-19] MEDS: IPRATROPIUM/ALBUTEROL 0.5-3(2.5)MG/3ML NEB HHN SCH ×6 (01:25→20:22)
[2018-10-19] MEDS: BLOOD SUGAR DIAGNOSTIC STRIP TEST SCH ×4 (06:39→21:00)
[2018-10-19] MEDS: METHYLPREDNISOLONE SOD SUCC 40 MG/ML VIAL IV SCH ×3 (06:39→22:05)
[2018-10-19] MEDS: INSULIN LISPRO 100 UNITS/ML SUBCUT SCH ×4 (06:44→21:00)
[2018-10-19 07:00] LABS: INR 1.1; PROTHROMBIN TIME 11.7 sec (9.6-11.0)
[2018-10-19 07:25] LABS: BASOPHILS % 0.2 % (0.0-2.0); HEMATOCRIT. 32.2 % (36.0-48.0); HEMOGLOBIN. 9.9 g/dL (12.0-16.0); LYMPHOCYTES % 8.3 % (20.0-50.0); MEAN CORPUSCULAR HEMOGLOBIN 22.9 pg (28.0-32.0); MEAN CORPUSCULAR VOLUME 74.9 fL (81.0-99.0); MEAN PLATELET VOLUME 8.8 fl (7.4-10.4); MONOCYTES % 2.1 % (2.0-8.0); NEUTROPHILS % 89.4 % (40.0-76.0); PLATELET 330 x1000/uL (130-400); RED CELL DISTRIBUTION WIDTH 21.4 % (11.6-14.6)
[2018-10-19 07:54] LABS: CHLORIDE 108 mEq/L (98-107)
[2018-10-19] MEDS: LOSARTAN POTASSIUM 50 MG TABLET PO SCH (09:01)
[2018-10-19] MEDS: FOLIC ACID 1MG TABLET PO SCH (09:02)
[2018-10-19] MEDS: ASPIRIN 81MG TABLET PO SCH (09:02)
[2018-10-19] MEDS: APIXABAN 5 MG TABLET PO SCH ×2 (09:02→17:17)
[2018-10-19] MEDS: THIAMINE HCL 100MG TABLET PO SCH (09:02)
[2018-10-19] MEDS: MULTIVITAMINS,THER W-MINERALS TABLET PO SCH (09:02)
[2018-10-19] MEDS: CARVEDILOL 6.25 MG TABLET PO SCH ×2 (09:02→22:05)
[2018-10-19] MEDS: NICOTINE 21MG PATCH TD SCH (09:03)
[2018-10-19] MEDS: BUDESONIDE 0.5MG/2ML NEB HHN SCH ×2 (11:53→20:22)
[2018-10-19] MEDS: LEVOFLOXACIN 250MG PREMIX 50 ML IV SCH (14:40)
[2018-10-19] MEDS: FAMOTIDINE 20MG/2ML VIAL IV SCH (15:14)
[2018-10-19] MEDS ORDERED: PROMETHAZINE/DEXTROMETHORPHAN 6.25-15MG/5ML BOTTLE 120ML PO PRN (20:30)
[2018-10-19] MEDS: QUETIAPINE FUMARATE 100MG TABLET PO SCH (22:05)
[2018-10-20] VITALS (9 sets, daily range): BP systolic 105–155; BP diastolic 56–104
[2018-10-20] MEDS: IPRATROPIUM/ALBUTEROL 0.5-3(2.5)MG/3ML NEB HHN SCH ×5 (00:15→17:01)
[2018-10-20] MEDS: BLOOD SUGAR DIAGNOSTIC STRIP TEST SCH ×3 (06:13→16:58)
[2018-10-20] MEDS: METHYLPREDNISOLONE SOD SUCC 40 MG/ML VIAL IV SCH ×2 (06:13→13:31)
[2018-10-20] MEDS: INSULIN LISPRO 100 UNITS/ML SUBCUT SCH ×3 (07:02→17:15)
[2018-10-20] MEDS: BUDESONIDE 0.5MG/2ML NEB HHN SCH (07:48)
[2018-10-20] MEDS: CARVEDILOL 6.25 MG TABLET PO SCH (09:00)
[2018-10-20] MEDS: LOSARTAN POTASSIUM 50 MG TABLET PO SCH (09:00)
[2018-10-20] MEDS: MULTIVITAMINS,THER W-MINERALS TABLET PO SCH (09:20)
[2018-10-20] MEDS: THIAMINE HCL 100MG TABLET PO SCH (09:20)
[2018-10-20] MEDS: QUETIAPINE FUMARATE 100MG TABLET PO SCH (09:20)
[2018-10-20] MEDS: APIXABAN 5 MG TABLET PO SCH ×2 (09:20→17:32)
[2018-10-20] MEDS: FOLIC ACID 1MG TABLET PO SCH (09:20)
[2018-10-20] MEDS: ASPIRIN 81MG TABLET PO SCH (09:20)
[2018-10-20] MEDS: NICOTINE 21MG PATCH TD SCH (09:21)
[2018-10-20] MEDS: FAMOTIDINE 20MG/2ML VIAL IV SCH (15:12)
[2018-10-20] MEDS: LEVOFLOXACIN 250MG PREMIX 50 ML IV SCH (15:14)
== END 2018-10-20 19:10 | disposition home or self-care (01) | DRG 193 ==
LOC: ER 16:03 → 3WST 19:41 → EDBEDREQTM 19:54 → EDBEDREQ 19:54 → EDBEDREQSVC 20:00 → ENRESERV 21:37 → 5WST 10-20 08:43
PROVIDERS: ADMIT Internal Medicine; ATTEND Internal Medicine
DX: J18.9 Pneumonia, unspecified organism (principal); I50.33 Acute on chronic diastolic (congestive) heart failure; J44.0 Chronic obstructive pulmonary disease with (acute) lower respiratory infection; D68.59 Other primary thrombophilia; R65.10 Systemic inflammatory response syndrome (SIRS) of non-infectious origin without acute organ dysfunction; J44.1 Chronic obstructive pulmonary disease with (acute) exacerbation; I11.0 Hypertensive heart disease with heart failure; F41.9 Anxiety disorder, unspecified; R06.03 Acute respiratory distress; K29.20 Alcoholic gastritis without bleeding; I48.91 Unspecified atrial fibrillation; D64.9 Anemia, unspecified; E78.5 Hyperlipidemia, unspecified; F10.10 Alcohol abuse, uncomplicated; F17.210 Nicotine dependence, cigarettes, uncomplicated; F32.9 Major depressive disorder, single episode, unspecified; Z79.01 Long term (current) use of anticoagulants; Z91.19 Patient's noncompliance with other medical treatment and regimen
CPT/HCPCS: 36415; 36600; 71045; 74177; 80048; 80305; 80320; 82375; 82805; 82962; 83605; 83880; 84484; 90732; 93005; 94640; 96365; 96366; 96375; 99291; J1650; J1956; J2270; J2543; J2920; J2930; J3475; J3490; J7050; J7620; J7626; Q9967; G0480